=== PATIENT | female | born 1985 | race Caucasian/White ===

== ENCOUNTER 2018-04-19 18:00 | Emergency (ER) | payer OTHER, BC ==
[2018-04-19] MEDS: KETOROLAC 15 MG INJ IM (18:50)
== END 2018-04-19 19:04 | disposition home or self-care (01) ==
LOC: E/R 19:04
DX: S16.1XXA Strain of muscle, fascia and tendon at neck level, initial encounter (principal); V49.40XA Driver injured in collision with unspecified motor vehicles in traffic accident, initial encounter
CPT/HCPCS: 81025; 96372; 99284-25